=== PATIENT | female | born 1970 | race African-American/Black ===

== ENCOUNTER 2023-08-16 07:46 | Emergency (ER) | payer OTHER ==
[~2023-08-16] VITALS: Ht 157.5 cm; Wt 100.0 kg
[2023-08-16] MEDS: SODIUM CHLORIDE 0.9% 500 ML IV ONE (09:19)
[2023-08-16] MEDS: methylPREDNISolone SOD SUCC 125 MG/2 ML VL IV ONE (09:19)
[2023-08-16] MEDS: diphenhdrAMINE HCL 50 MG/1 ML VL IV ONE (09:20)
[2023-08-16 09:22] LABS: Basophils # (auto) 0.1 10 ^3/uL (0-0.2); Basophils % (auto) 0.6 % (0.0-2.0); Eosinophils # (auto) 0.1 10 ^3/uL (0-0.8); Eosinophils % (auto) 0.7 % (0.0-7.0); Hematocrit 40.2 % (36.0-46.0); Hemoglobin 13.2 g/dL (12.2-16.2); Lymphocytes # (auto) 2.6 10 ^3/uL (0.4-5.4); Lymphocytes % (auto) 19.7 % (10.0-50.0); Mean Corpuscular Hemoglobin 28.4 pg (28.0-32.0); Mean Corpuscular Hgb Conc. 32.8 g/dL (32.0-36.0); Mean Corpuscular Volume 86.6 fL (80.0-100.0); Monocytes # (auto) 0.6 10 ^3/uL (0-1.3); Monocytes % (auto) 4.9 % (0.0-12.0); Neutrophils # (auto) 9.6 10 ^3/uL (1.6-8.6); Neutrophils % (auto) 74.1 % (37.0-80.0); Red Blood Cells 4.64 10^6/uL (4.0-5.20); Red Cell Distribution Width 14.9 % (11.8-14.3)
[2023-08-16 09:32] LABS: Chloride 105 mmol/L (98-107); Potassium 2.9 mmol/L (3.5-5.1); Sodium 141 mmol/L (136-145)
[2023-08-16 09:33] LABS: Anion Gap 7 (5-15); Calcium 9.6 mg/dL (8.5-10.1); Carbon Dioxide 29 mmol/L (20-30)
[2023-08-16 09:38] LABS: BUN/Creatinine Ratio 13.6 (10.0-20.0); Blood Urea Nitrogen 12 mg/dL (9-23); Glucose 130 mg/dL (74-106)
[2023-08-16] MEDS ORDERED: DIPH25CA66 PO (10:32)
[2023-08-16] MEDS ORDERED: METH4PAK PO (10:32)
[2023-08-16 10:49] VITALS: BP 151/74; PULSE 85; RESP 18; TEMP 98.1; O2SAT 97
== END 2023-08-16 10:50 | disposition home or self-care (01) ==
LOC: EDBD 07:46 → ER 07:46
DX: T78.49XA Other allergy, initial encounter (principal); I10 Essential (primary) hypertension; J45.909 Unspecified asthma, uncomplicated; Z85.9 Personal history of malignant neoplasm, unspecified; Z98.890 Other specified postprocedural states; Z88.8 Allergy status to other drugs, medicaments and biological substances; Z79.899 Other long term (current) drug therapy; Z91.010 Allergy to peanuts; X58.XXXA Exposure to other specified factors, initial encounter
CPT/HCPCS: 36415; 80048; 85025; 96361; 96374; 96375; 99284; J1200; J2930; J7040